=== PATIENT | female | born 1950 | race Caucasian/White ===

== ENCOUNTER 2017-09-23 14:00 | Observation (INO) ==
[2017-09-23] MEDS ORDERED: IOPAMIDOL 100 ML BOTTLE IV ONE (14:01)
--- NOTE | 2017-09-23 14:40 | Cat Scan Report ---
CLINICAL INFORMATION: Code stroke. History of NPH with shunt COMPARISON: 07/19/[address] TECHNIQUE: 2.5 mm helical slices were obtained in the skull base to vertex. Following reconstruction, axial reformatted images were reviewed at bone and parenchymal windows. The exam was performed using radiation dose optimization techniques including, but not limited to, automated exposure control, adjustment of the mA and/or kV according to patient size and use of iterative reconstruction technique. FINDINGS: INVENTORY PLANNER shunt catheter enters through a right frontal craniotomy and extends through the right frontal lobe into the frontal horn of the right lateral ventricle, foramen of Bender with the shunt tip in the anterior third ventricle. The shunt remains in stable satisfactory position. Ventricles remain small, slitlike suggesting overshunting. This is unchanged. Moderate-sized chronic infarct in the in the deep right frontal white matter along the shunt tract and a second moderate infarct in the deep white matter infarct in the right frontal parietal junction is again noted. Patchy chronic ischemic changes throughout the deep cerebral white matter also stable. There is no intracerebral hemorrhage, mass effect or edema. Bone windows show no osseous abnormality. IMPRESSION: 1. No evidence of hemorrhage, edema or other acute finding 2. INVENTORY PLANNER shunt catheter is in stable satisfactory position. The ventricles remain quite small suggesting overshunting. 3. Moderate size remote remote infarcts in the deep white matter of the right frontal lobe and the right frontal/parietal junction again noted. Mild chronic ischemic changes in the knee cerebral white matter were also seen on the comparison study. Interpreted and Authenticated by: Naeem Terrazas 09/23/17
--- NOTE | 2017-09-23 14:57 | Emergency Department Note ---
Neuro HPI - General Chief Complaint: Stroke Symptoms Stated Complaint: Speech slurring starting last night. Time Seen by Provider: 09/23/17 14:09 Source: patient Mode of arrival: ambulatory Limitations: no limitations - History of Present Illness HPI Narrative: This pleasant 67-year-old female was brought by her daughter, Sarah, due to suspected drooping of the left side of the face. Patient was seen a few moments ago by Dr. Moya, who felt that there were abnormalities and sent her directly to the emergency room. She arrived around 1:50 PM. This is when daughter first also noticed that it seemed to be some drooping of the left corner of her mouth. Also has had some slurred speech. The drooping of the face may have been present in the evening around 7 PM when the daughter also saw the patient but she did not notice anything else and was questioning this. Patient had no troubles with rest or sleep. She denies numbness or tingling anywhere or weakness or imbalance or pain. REVIEW OF SYSTEMS: Denies fevers chills or sweats. Denies headache or weakness. Denies paresthesias. Has had a problem with memory issues related to damages from the hydrocephalus from the benign tumor causing hydrocephalus which is happened on 2 occasions. Denies shortness of breath or cough. Denies chest pain or palpitations. No history of heart murmur. Denies abdominal pain or nausea or vomiting. No diarrhea but it has some mild constipation. No dysuria or frequency. Some back pain attributed to arthritis. No anxiety. Has some grief/adjustment depression with her passing away 4 years ago and having to sell the place, etc. - Related Data Home Medications: Home Medications Medication Instructions Recorded Confirmed Calcium Carbonate/Vitamin D3 1 each PO DAILY 07/19/16 07/19/16 [Calcium 600-Vit D3 800 Tab] Fenofibrate Nanocrystallized 48 mg PO DAILY 07/19/16 07/19/16 [Fenofibrate] Losartan [Cozaar] 100 mg PO DAILY 07/19/16 07/19/16 Allergies/Adverse Reactions: Allergies Allergy/AdvReac Type Severity Reaction Status Date / Time No Known Drug Allergies Allergy Verified 07/19/16 15:54 Past Medical History - Past Medical History Medical history: Reports: arthritis (Of back.), hypertension, other (Memory difficulties. Benign brain tumor. Hydrocephalus. DENIES: previously known history of heart murmur.). Denies: cancer, CVA, DM (but PREDIABETES.), myocardial infarction Psychiatric history: Reports: depression (Due to adjustment and grief). Denies : anxiety Surgical history ED: Reports: hysterectomy, knee replacement (Bilateral), other (MORTGAGE LOAN ORIGINATOR shunt) - Social History smoking status: Former smoker (Small amounts socially in the past.) Alcohol use: Reports: Rarely (May be a beer a quarter at the most.) Drug use: Reports: none. Denies: marijuana Physical Exam Limitations: no limitations General appearance: alert, in no apparent distress Head: atraumatic, normocephalic Eye: Present: PERRL, EOMI ENT: normal oropharynx, mucous membranes moist, other (Trace downward turn of the left corner of the mouth. Smile seems to be symmetric. Left eye is trace more open than the right eye. Forehead wrinkling is a same on both sides.) Neck: Present: trachea midline. Absent: lymphadenopathy, thyromegaly Respiratory: Present: normal lung sounds bilaterally. Absent: respiratory distress, wheezes, stridor, accessory muscle use, prolonged expiratory phase Cardiovascular: Present: regular rate, normal rhythm. Absent: systolic murmur, diastolic murmur Abdominal: Present: soft. Absent: distention, tenderness, guarding, rebound, rigidity, organomegaly, mass Extremities: Absent: pedal edema, pretibial edema, calf tenderness Back: Absent: CVA tenderness (R), CVA tenderness (L) Neurological: Present: alert, oriented X3, other (left forehead flatter than right but family is certain this is normal chronic.) Patient oriented to: Present: person, place, time Speech: Present: fluid speech (Trace slurring noticeable to myself and to daughter.). Absent: receptive aphasia, expressive aphasia Cranial nerves: EOM function (II, III, IV, ): Normal, facial sensation (V): Normal, facial palsy (VII): Abnormal Left (Trace left corner of the mouth down.) , tongue deviation (XII): Normal Cerebellar function: finger to nose: Normal, heel to hudson: Normal Cerebellar function: normal gait Motor strength - LUE: 4/5 Motor strength - RUE: 4/5 Motor strength - LLE: 4/5 Motor strength - RLE: 4/5 Upper motor neuron exam: pronator drift: Absent bilaterally Sensory exam upper extremity: Normal: light touch, pin prick Sensory exam lower extremity: Normal: light touch, pin prick Psychiatric: Present: normal affect, normal mood Skin: Present: warm, dry Course Course Narrative: 2:02 PM With patient's symptoms and possibilities and concerns, code stroke was initiated with CT scan of the head followed by CTA of the head neck. [address] of the head was negative. CTA head and neck Vital Signs Temperature 98.1 F 09/23/17 14:00 Pulse Rate 74 09/23/17 14:00 Respiratory Rate 18 09/23/17 14:00 Blood Pressure 150/77 09/23/17 14:00 Pulse Oximetry (%) 95 09/23/17 14:00 Temperature 98.1 F 09/23/17 14:00 Pulse Rate 73 09/23/17 15:02 Respiratory Rate 20 09/23/17 15:02 Blood Pressure 122/63 09/23/17 15:02 Pulse Oximetry (%) 93 09/23/17 15:02 Neuro Symptoms/Deficit - MDM Narrative Medical decision making narrative: 2:45 PM NIH score 2, ABCD2 score of 4. Heart murmur is a new finding. Await CTA of head neck. 3:30 PM CTA of the head and neck was negative. I spoke with neuroradiologist Dr. Ace Holder, who agrees it to conservative management is recommended that we are outside the window of intervention that would be of usefulness. He recommended dual antiplatelet therapy with aspirin and Plavix with a loading dose, plus a statin. Telemetry monitoring to rule out paroxysmal A. fib and monitor blood pressure could be considered. With her ABCD 2 score of 4, this seems to be velasquez. Plus to get an echocardiogram with her newly diagnosed systolic heart murmur. 4:00 PM I spoke with hospitalist, Dr. Ben Plaza, who kindly agreed to accept this patient for inpatient additional monitoring and/or treatment. Possibility that this could be simply a Cobb's palsy with a more pronounced dysarthria due to muscular involvement of the oropharynx seems less likely. More likely seems that this is a small CVA. Additional neuroimaging may be considered. - Lab Data Lab results reviewed: Yes I reviewed the patient's lab results. Result diagrams: 09/23/17 14:23 09/23/17 14:23 Lab Results 09/23/17 09/23/17 09/23/17 Range/Units 14:23 14:23 14:23 WBC 7.6 (4.5-11.0) K/mcL RBC 4.71 (4.00-5.20) M/mcL Hgb 14.8 (12.0-15.0) g/dL Hct 43.1 (36.0-48.0) % POC Hct 43.0 (36.0-48.0) % MCV 91.4 (80.0-100.0) fL MCH 31.5 (26.0-34.0) pg MCHC 34.4 (31.0-36.0) g/dL RDW 13.0 (11.5-14.5) % Plt Count 277 (140-440) K/mcL MPV 8.7 (7.4-10.4) fL Gran % 70.7 (38.0-78.0) % Lymph % (Auto) 18.8 (15.5-49.0) % [place] % (Auto) 8.2 (1.0-12.0) % Eos % (Auto) 2.0 (0.0-7.0) % Baso % (Auto) 0.3 (0.0-2.0) % Gran # 5.3 (1.8-8.0) K/mcL Lymph # (Auto) 1.4 L (1.5-4.8) K/mcL [place] # (Auto) 0.6 (0.1-0.9) K/mcL Eos # (Auto) 0.1 (0.0-0.7) K/mcL Baso # (Auto) 0 (0.0-0.3) K/mcL POC PT 11.1 L (11.9-14.5) sec POC INR 0.9 (0.9-1.2) APTT 34 (20-37) sec POC Sodium 140 (133-145) mmol/L Sodium 142 (133-145) mmol/L POC Potassium 3.8 (3.3-5.1) mmol/L Potassium 3.9 (3.3-5.1) mmol/L POC Chloride 101 (96-108) mmol/L Chloride 102 (96-108) mmol/L Carbon Dioxide 27 (22-30) mmol/L POC Total CO2 29 (22-30) mmol/L Anion Gap 13.0 (8-16) POC BUN 20 (8-23) mg/dl BUN 18 (8-23) mg/dl Creatinine 1.0 (0.6-1.1) mg/dl POC Creatinine 1.0 (0.6-1.1) mg/dl GFR Calculation 59 Glucose 125 H (70-105) mg/dL POC Glucose 126 H (70-105) mg/dL Calcium 10.3 (8.6-10.4) mg/dl POC WB Ioniz Calcium 1.27 (1.16-1.32) mmol/L Total Bilirubin 0.2 (0.0-1.0) mg/dL AST 12 (0-37) U/l ALT 14 (0-40) U/l Alkaline Phosphatase 90 (39-117) U/L Troponin T (0-0.03) ng/ml Total Protein 7.1 (5.9-8.4) gm/dL Albumin 4.5 (3.2-5.2) gm/dL Globulin 2.6 (2.2-3.7) gm/dL Albumin/Globulin Ratio 1.7 (1.0-2.3) 09/23/17 Range/Units 14:23 WBC (4.5-11.0) K/mcL RBC (4.00-5.20) M/mcL Hgb (12.0-15.0) g/dL Hct (36.0-48.0) % POC Hct (36.0-48.0) % MCV (80.0-100.0) fL MCH (26.0-34.0) pg MCHC (31.0-36.0) g/dL RDW (11.5-14.5) % Plt Count (140-440) K/mcL MPV (7.4-10.4) fL Gran % (38.0-78.0) % Lymph % (Auto) (15.5-49.0) % [place] % (Auto) (1.0-12.0) % Eos % (Auto) (0.0-7.0) % Baso % (Auto) (0.0-2.0) % Gran # (1.8-8.0) K/mcL Lymph # (Auto) (1.5-4.8) K/mcL [place] # (Auto) (0.1-0.9) K/mcL Eos # (Auto) (0.0-0.7) K/mcL Baso # (Auto) (0.0-0.3) K/mcL POC PT (11.9-14.5) sec POC INR (0.9-1.2) APTT (20-37) sec POC Sodium (133-145) mmol/L Sodium (133-145) mmol/L POC Potassium (3.3-5.1) mmol/L Potassium (3.3-5.1) mmol/L POC Chloride (96-108) mmol/L Chloride (96-108) mmol/L Carbon Dioxide (22-30) mmol/L POC Total CO2 (22-30) mmol/L Anion Gap (8-16) POC BUN (8-23) mg/dl BUN (8-23) mg/dl Creatinine (0.6-1.1) mg/dl POC Creatinine (0.6-1.1) mg/dl GFR Calculation Glucose (70-105) mg/dL POC Glucose (70-105) mg/dL Calcium (8.6-10.4) mg/dl POC WB Ioniz Calcium (1.16-1.32) mmol/L Total Bilirubin (0.0-1.0) mg/dL AST (0-37) U/l ALT (0-40) U/l Alkaline Phosphatase (39-117) U/L Troponin T < 0.01 (0-0.03) ng/ml Total Protein (5.9-8.4) gm/dL Albumin (3.2-5.2) gm/dL Globulin (2.2-3.7) gm/dL Albumin/Globulin Ratio (1.0-2.3) - Radiology Data Radiology results reviewed: Yes I reviewed the patient's radiology results. - EKG Data EKG results narrative: No acute coronary syndrome findings. This ECG will be read by a bee breeder. Disposition Pt seen by INTERNATIONAL SALES REPRESENTATIVE/PA only: No Clinical Impression: Slurred speech, Facial asymmetry, Hypertension, essential, benign, Heart murmur previously undiagnosed CVA (cerebrovascular accident) Qualifiers: CVA mechanism: unspecified Qualified Code(s): I63.9 - Cerebral infarction, unspecified Disposition: Xfer As Inpt ([facility]) Condition: Fair Referrals: Areli Manuel MD [Primary Care Provider] -
[2017-09-23 15:01] LABS: Basophils # (Auto) 0 K/mcL (0.0-0.3); Basophils % (Auto) 0.3 % (0.0-2.0); Eosinophils # (Auto) 0.1 K/mcL (0.0-0.7); Granulocytes % (Auto) 70.7 % (38.0-78.0); Lymphocytes # (Auto) 1.4 K/mcL (1.5-4.8); Lymphocytes % (Auto) 18.8 % (15.5-49.0); Mean Cell Volume 91.4 fL (80.0-100.0); Mean Corpuscular HGB Conc 34.4 g/dL (31.0-36.0); Mean Corpuscular Hemoglobin 31.5 pg (26.0-34.0); Monocytes # (Auto) 0.6 K/mcL (0.1-0.9); Monocytes % (Auto) 8.2 % (1.0-12.0); Platelet Count 277 K/mcL (140-440); RBC 4.71 M/mcL (4.00-5.20)
[2017-09-23 15:14] LABS: ALT/SGPT 14 U/l (0-40); Albumin 4.5 gm/dL (3.2-5.2); Albumin/Globulin Ratio 1.7 (1.0-2.3); Alkaline Phosphatase 90 U/L (39-117); Blood Urea Nitrogen 18 mg/dl (8-23)
--- NOTE | 2017-09-23 15:25 | Cat Scan Report ---
CLINICAL INFORMATION: Code stroke COMPARISON: None. TECHNIQUE: 80 cc of Isovue-300 were injected intravenously , and using SmartPrep to maximize cerebral arterial opacification, 0.625 mm helical slices were obtained from the skull base through the cerebral vertex. Following reconstruction , sagittal, coronal and axial reformatted images were processed and reviewed at multiple windows and levels. 3D volume rendered and MIP images were acquired at a independent workstation. The exam was performed using radiation dose optimization techniques including, but not limited to, automated exposure control, adjustment of the mA and/or kV according to patient size and use of iterative reconstruction technique. FINDINGS: The intracranial internal carotid, anterior and middle cerebral, intracranial vertebral, basilar and posterior cerebral arteries shows minimal scattered atherosclerotic plaque but no evidence of occlusion, significant stenosis or other abnormality. Superficial and deep cerebral veins are widely patent IMPRESSION: Negative Interpreted and Authenticated by: Naeem Terrazas 09/23/17
--- NOTE | 2017-09-23 15:33 | Cat Scan Report ---
CLINICAL INFORMATION: Code stroke COMPARISON: None. TECHNIQUE: 80 cc of Isovue-300 were injected intravenously, and using SmartPrep to maximize arterial opacification, 0.625 mm helical slices were obtained from the thoracic aortic arch through the mohegan of [place]. Following reconstruction, 1.25 mm sagittal, coronal and axial reformatted images were processed and reviewed at standard and bone algorithm/window. 3-D volume rendered, CPR and MIP images were processed using a NumberPicture work station.The exam was performed using radiation dose optimization techniques including, but not limited to, automated exposure control, adjustment of the mA and/or kV according to patient size and use of iterative reconstruction technique. FINDINGS: The thoracic aortic arch is normal in contour and caliber with diffuse intimal thickening. Aortic arch branching is conventional. There is moderate fibrofatty plaque in the posterior wall of the left ICA origin which does not result in significant stenosis - less than 30 %. The remainder of the internal, common, external carotid, brachycephalic, subclavian and vertebral arteries are widely patent. Soft tissues are significant for a 20 x 11 mm lobulated septated low-attenuation nodule with central calcification dominating the inferior right thyroid lobe. No other soft tissue abnormalities. Cervical spine is anatomically aligned without osseous abnormality. At C4-5, moderate broad disc spur complex left-sided asymmetry results in severe left lateral recess/IV foraminal narrowing impinging the exiting left C5 nerve root. At C5-6, broad right-sided disc spur complex results in severe right lateral recess last IV foraminal narrowing impinging the exiting right C6 nerve root IMPRESSION: 1. Moderate fibrofatty plaque in the left ICA origin which does not result in significant stenosis - less than 30%. The remainder of the carotid, vertebral, brachiocephalic and subclavian arteries are all normal 2. 20 x 11 mm low-attenuation nodule inferior right thyroid lobe with central calcification. Suggest: Thyroid ultrasound 3. Left-sided C4-5 disc spur complex resulting in severe left lateral recess last IV foraminal narrowing impinging the exiting left C5 nerve root and C5-6 broad disc spur complex resulting in severe right lateral recess IV foraminal narrowing impinging the exiting right C6 nerve root. Please correlate with radiculopathy Interpreted and Authenticated by: Naeem Terrazas 09/23/17
[2017-09-23] MEDS ORDERED: CLOPIDOGREL 300 MG TABLET PO ONE (16:02)
[2017-09-23] MEDS ORDERED: ATORVASTATIN 40 MG TABLET PO ONE (16:03)
[2017-09-23] MEDS ORDERED: ASPIRIN 81 MG TAB.CHEW CHEWED ONE (16:03)
[2017-09-23 16:19] LABS: Appearance,Urine CLEAR; Bilirubin,Urine NEG (NEG); Color,Urine STRAW; Glucose,Urine (UA) NEGATIVE (NEG); Leukocyte Esterase,Urine NEG /uL (NEG); Protein,Urine NEG (NEG); Specific Gravity,Urine 1.016 (1.000-1.035); Urine Blood NEG mg/dL (<0.03); Urobilinogen,Urine NEG (NEG)
[2017-09-23] MEDS ORDERED: 0.9 % SODIUM CHLORIDE 1,000 ML IV ONE (16:56)
[2017-09-23] MEDS ORDERED: LABETALOL 5 MG/ML ML IV PRN ×2 (18:05→21:15)
[2017-09-23] MEDS ORDERED: ACETAMINOPHEN 325 MG TABLET PO PRN (18:05)
[2017-09-23] MEDS ORDERED: ONDANSETRON 4 MG/2 ML VIAL IV PRN (18:05)
[2017-09-23 20:06] LABS: HDL Cholesterol 31 mg/dl (>40)
[2017-09-23] MEDS: ENOXAPARIN 40 MG/0.4 ML SYRINGE SQ SCH (21:38)
[2017-09-23] MEDS: 0.9 % SODIUM CHLORIDE 10 ML SYRINGE IV SCH (21:38)
[2017-09-24] MEDS: 0.9 % SODIUM CHLORIDE 10 ML SYRINGE IV SCH ×4 (05:52→20:35)
--- NOTE | 2017-09-24 07:27 | History and Physical Report ---
DATE OF ADMISSION: 09/23/2017 PRIMARY CARE PHYSICIAN: Areli Manuel MD; Dr. Moreno, Neurosurgeon. CHIEF COMPLAINT: Left facial droop and some slurring. HISTORY OF PRESENT ILLNESS: This is a 67-year-old female with a history of hypertension, hyperlipidemia who went to chiropractor this morning and he noticed some facial droop and concerned for stroke sent her in to the ER. In speaking with the family the patient's family member, who I believe is her daughter, noticed that possibly she had some drooping last night but she has lost a lot of weight, which has changed her facial features, so she did not think too much about it. Apparently today at the chiropractor's it was quite noticeable. Per the family when they saw her, they did notice some left facial droop and she did have apparently some slurring in the ER. She was seen and stroke protocol was initiated. She had initial head CT and a CTA head and neck. There were no acute findings, some old remote infarction noted. Case was discussed with stroke neurologist who recommended conservative management, Plavix and aspirin with loading dose of Plavix, monitoring in the hospital for any arrhythmias and blood pressure monitoring. She was noted to have an ABCD score of 4 to 5 so echocardiogram was recommended. In speaking with the patient she has never had any similar instances like this before and never had any heart issues. She did not really notice any facial drooping or speech impairments-it was noted by the family members. She did seem to be clearing up when I saw her. No numbness, tingling, or focal weakness in the extremities. No vision changes. The only recent medication change was her fenofibrate was changed to simvastatin. She feels she has been adequately hydrating herself. Vital signs were stable in the ER. REVIEW OF SYSTEMS: Positive for left facial droop and slurring, which seem to have resolved. Negative for headache, fever, chills, nausea, vomiting, chest pain, shortness of breath, coughing, stomach pain, diarrhea, constipation. Remaining 10-point review of systems is negative. PAST MEDICAL HISTORY: Normal pressure hydrocephalus status post PUMPER HELPER shunt with Dr. Moreno in the past, history of hypertension, hyperlipidemia. PAST SURGICAL HISTORY: Hysterectomy, bilateral total knee arthroplasty, PUMPER HELPER shunt, hernia repair, eye surgery. FAMILY HISTORY: Mother had hypertension, father had diabetes. SOCIAL HISTORY: The patient denies tobacco, drinks alcohol rarely. She does not use a cane or walker to ambulate, lives with daughter. ALLERGIES: No known drug allergies. HOME MEDICATIONS: 1. Losartan. 2. Amlodipine. 3. Simvastatin. 4. Aspirin. PHYSICAL EXAMINATION: VITAL SIGNS: Temperature 98, pulse 74, respirations 18, blood pressure 122/60, was 150/77 when she came in, oxygen 95% on room air. GENERAL: The patient is alert, awake, in no acute distress. HEENT: Extraocular muscles are intact. Pupils equal, reactive to light. Facial expression appears symmetrical at this time. CARDIOVASCULAR: Regular rhythm, II/ systolic murmur noted. PULMONARY: Clear to auscultation bilaterally. No wheeze, rhonchi or rales. ABDOMEN: Soft, nontender, distended, positive bowel sounds in all four quadrants. EXTREMITIES: No clubbing, cyanosis or edema. SKIN: Warm and dry. NEUROLOGIC: Cranial nerves II-XII appear to be grossly intact at this time. Her face appears to be symmetrical at this time and speech when I initially talked with her, there was a possible subtle slurring but by the end of my conversation essentially resolved. She seemed to be speaking clearly, denied any problems with swallowing. LABORATORY DATA: Essentially unremarkable. Imaging reports read as CT of the brain without contrast showed a stable PUMPER HELPER shunt. There was moderate sized remote infarct in the deep white matter of the right frontal lobe and the right frontoparietal junction, some chronic ischemic changes also seen and present on previous imaging. No significant carotid artery stenosis on a CTA of the neck. Urinalysis unremarkable. EKG normal sinus rhythm. ASSESSMENT: 1. Transient ischemic attack with ABCD stroke score between 4 and 5 with this facial droop on the left with some slurring, essentially resolved when I saw her. It sounds like the symptoms lasted for at least a few hours. 2. Hypertension. 3. Hyperlipidemia. She was recently changed from fenofibrate to simvastatin. 4. Normal pressure hydrocephalus status post PUMPER HELPER shunt, follows Dr. Moreno. PLAN: The patient will be monitored in telemetry. We will obtain echocardiogram and MRI for further evaluation. Stroke neurologist was contacted from the ER who recommended dual antiplatelet with loading dose of Plavix, continue Plavix for 3 weeks. We will continue her statin medication. Check lipid panel. Give IV fluid hydration. Allow permissive elevation blood pressure first 24 hours. DVT prophylaxis with Lovenox. LPK:kh Job ID: [id number] Doc ID: [id number] Ben Plaza DO
[2017-09-24] MEDS ORDERED: ATORVASTATIN 40 MG TABLET PO ONE (07:44)
--- NOTE | 2017-09-24 07:48 | Internal Med Progress Note ---
Medical - PN: Subj Patient information: Note initiated : 09/24/17 at 7:39 am Service Date, if different from initiated Date: [] Patient: Inez Astudillo 67 y/o F admitted on 09/23/17 for Speech Slurring Starting Last Night. Chief Complaint: [] Interval history: slept well, no overnight events. Review of Systems: denies numbness/focal weakness/ headache/fever/chills/nausea/vomiting/chest or abdominal pain/cough/dyspnea/diarrhea. Otherwise see above. - Constitutional Vitals: Vital Signs Temp Pulse Resp BP Pulse Ox 98.0 F 65 15 118/68 92 09/24/17 03:01 09/24/17 05:01 09/24/17 05:01 09/24/17 05:01 09/24/17 05:01 Period Temp Pulse Resp BP Sys/Glover Pulse Ox Last 24 Hr 97.0 F-98.1 F 55-77 12-27 112-160/56-114 92-100 Intake and Output 09/23/17 09/24/17 09/24/17 21:59 05:59 13:59 Intake Total 1000 / 1000 200 / 200 Output Total 825 / 825 750 / 750 Balance 175 / 175 -550 / -550 Weight 176 lb 12.8 oz Intake & Output: Intake & Output 09/23/17 09/24/17 09/24/17 21:59 05:59 13:59 Intake Total 1000 / 1000 200 / 200 Output Total 825 / 825 750 / 750 Balance 175 / 175 -550 / -550 Weight 176 lb 12.8 oz Intake: IV 1000 / 1000 Sodium Chloride 0.9% 1,000 ml @ 1000 / 1000 Wide Open IV BOLUS ONE Rx#: [id number] Oral 200 / 200 Output: Urine Catheter Amount 200 / 200 Void Amount 625 / 625 750 / 750 # of times incontinent of urine 0 / 0 Other: Urine Appearance Clear Clear Urine Color Bright Yellow Bright Yellow Urine Odor Normal Normal # Voids 1 Exam: General: Alert, Awake, No acute Distress HEENT: EOMI CV: RRR, 2/6 SM Pulm: Clear b/l, no wheezing/rhonchi/rales Abd: soft, nontender, +BS x4 Ext: no clubbing/cyanosis/edema Neuro: Alert, face symmetrical, no slurring on exam this morning. moves all extremities Skin: warm/dry Medical - PN: Obj Da - Labs CBC & Chem 7: 09/24/17 07:22 09/24/17 07:22 Labs: Abnormal Lab Results 09/23/17 09/23/17 09/23/17 18:38 14:23 14:23 Lymph # (Auto) POC PT 11.1 L Glucose 125 H POC Glucose 126 H Triglycerides 482 H Cholesterol 246 H Non-HDL Cholesterol 215 H HDL Cholesterol 31 L 09/23/17 14:23 Lymph # (Auto) 1.4 L POC PT Glucose POC Glucose Triglycerides Cholesterol Non-HDL Cholesterol HDL Cholesterol Meds: Medications Acetaminophen (Tylenol) 650 mg PO Q4-6HP PRN PRN Reason: PAIN/FEVER > 101 Aspirin (Aspirin) 81 mg CHEWED DAILY REZA Clopidogrel Bisulfate (Plavix) 75 mg PO DAILY REZA Enoxaparin Sodium (Lovenox) 40 mg SQ DAILY [facility] Last Admin: 09/23/17 21:38 Dose: 40 mg Labetalol HCl (Trandate) 10 mg IV Q2HP PRN PRN Reason: sbp>185 Ondansetron HCl (Zofran) 4 mg IV Q4-6HP PRN PRN Reason: Nausea And Vomiting Sodium Chloride (Saline Flush) 10 ml IV Q8 [facility] Last Admin: 09/24/17 05:52 Dose: 10 ml Medical - PN: A/P - Time Spent With Patient Total time spent is greater than 50% in coordination of care (as documented) at patient's floor/unit and/or counseling patient: - Narrative A/P Narrative: A: *TIA with ABCD= 4-5, with this facial droop on the left with some slurring, essentially resolved when I saw her, symptoms lasted for several hours. -CTA Neck no sig stenosis -ekg NSR * Hypertension. * Hyperlipidemia. She was recently changed from fenofibrate to simvastatin. 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 Moreno. PLAN: - Echocardiogram and MRI brain pending. - Stroke neurologist was contacted from ER recommended dual antiplatelet with loading dose of Plavix, continue Plavix for 3 weeks. - continue Statin -s/p IV fluid hydration -Allow permissive elevation blood pressure first 24 hours if needed -ppx: Lovenox. Medical - PN: Qual - Stroke Onset of Symptoms Date: 09/22/17 Onset of Symptoms Time: 19:00 Symptom Onset Unknown: Yes - VTE Deep Vein Thrombosis/Pulmonary Embolism Present on Admission: No
[2017-09-24] MEDS ORDERED: ATORVASTATIN 20 MG TABLET PO ONE (08:00)
[2017-09-24 08:23] LABS: ALT/SGPT 13 U/l (0-40); Albumin 4.1 gm/dL (3.2-5.2); Albumin/Globulin Ratio 1.8 (1.0-2.3); Alkaline Phosphatase 87 U/L (39-117); Bilirubin,Direct < 0.2 mg/dL (0.0-0.3); Blood Urea Nitrogen 16 mg/dl (8-23); Gamma Glutamyl Transpeptidase 21 U/L (5-36); Uric Acid 3.6 mg/dL (2.5-8.0)
[2017-09-24 08:34] LABS: Basophils # (Auto) 0 K/mcL (0.0-0.3); Basophils % (Auto) 0.2 % (0.0-2.0); Eosinophils # (Auto) 0.2 K/mcL (0.0-0.7); Eosinophils % (Auto) 3.3 % (0.0-7.0); Granulocytes % (Auto) 67.3 % (38.0-78.0); Lymphocytes # (Auto) 1.3 K/mcL (1.5-4.8); Lymphocytes % (Auto) 20.4 % (15.5-49.0); Mean Cell Volume 91.3 fL (80.0-100.0); Mean Corpuscular HGB Conc 34.3 g/dL (31.0-36.0); Mean Corpuscular Hemoglobin 31.3 pg (26.0-34.0); Monocytes # (Auto) 0.6 K/mcL (0.1-0.9); Monocytes % (Auto) 8.8 % (1.0-12.0); Platelet Count 266 K/mcL (140-440); RBC 4.55 M/mcL (4.00-5.20); Red Cell Distribution Width 12.7 % (11.5-14.5)
[2017-09-24] MEDS: ASPIRIN 81 MG TAB.CHEW CHEWED SCH (09:10)
[2017-09-24] MEDS: CLOPIDOGREL 75 MG TABLET PO SCH (09:10)
[2017-09-24] MEDS: ENOXAPARIN 40 MG/0.4 ML SYRINGE SQ SCH (09:10)
--- NOTE | 2017-09-24 18:32 | Magnetic Resonance Report ---
CLINICAL INFORMATION: Slurred speech and left-sided facial droop beginning yesterday. 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 COACH OPERATOR shunt placement. COMPARISON: Postoperative MRI from 08/21/2016. TECHNIQUE:Sagittal T1 FLAIR, axial T1 FLAIR, T2 FLAIR propeller, T2 propeller, gradient, diffusion, ADC and coronal T2 weighted images were acquired. FINDINGS: The COACH OPERATOR shunt catheter enters through a right frontal craniotomy extending through the frontal lobe into the body of the right lateral ventricle and foramen of Bender. Tip is in the anterior third ventricle. The ventricles are quite small and slitlike suggesting overshunting. This is unchanged. A 4 x 1 cm wedge-shaped region of encephalomalacia in the right parietal lobe, near vertex, represents the surgical resection site of low-grade glioma. It is identical to the previous postoperative MRI - no evidence of residual or recurrent tumor. Overlying craniotomy defect noted. A 2.7 cm focus of restricted effusion is present in the right lentiform nucleus /posterior limb of the right internal capsule compatible with acute nonhemorrhagic infarct. This would account for the patient's symptoms. A small deep white matter infarct in the right frontal lobe is again noted. Signal void in intracerebral arteries, extra-axial cranial nerves, pituitary and orbits are normal. IMPRESSION: 1. 2.7 cm acute nonhemorrhagic lacunar infarct in the right lentiform nucleus - posterior limb of the right internal capsule. This likely accounts for patient's symptoms 2. 4 x 1 cm thin wedge-shaped region of encephalomalacia in the right parietal lobe, near vertex, representing resection site for a low-grade glioma. No evidence of recurrent/residual tumor. This is unchanged. 3. COACH OPERATOR shunt catheter extending through the right frontal lobe into the right lateral ventricle stable position. The ventricles are small slitlike suggesting overshunting. This is, however, unchanged 4. Moderate remote deep white matter infarct right frontal lobe again noted Interpreted and Authenticated by: Naeem Terrazas 09/24/17
[2017-09-24] MEDS ORDERED: ATORVASTATIN 20 MG TABLET PO SCH (21:00)
[2017-09-25] MEDS: 0.9 % SODIUM CHLORIDE 10 ML SYRINGE IV SCH (05:45)
[2017-09-25] MEDS: ASPIRIN 81 MG TAB.CHEW CHEWED SCH (08:58)
[2017-09-25] MEDS: CLOPIDOGREL 75 MG TABLET PO SCH (08:58)
[2017-09-25] MEDS: ENOXAPARIN 40 MG/0.4 ML SYRINGE SQ SCH (08:58)
--- NOTE | 2017-09-25 09:49 | Discharge Summary ---
Medical - DS: Prov Patient information: Note initiated : 09/25/17 at 9:43 am Service Date, if different from initiated Date: [] Patient: Inez Astudillo 67 y/o F admitted on 09/23/17 for Speech Slurring Starting Last Night/TIA. Chief Complaint: [] Date of admission: 09/23/17 18:01 Discharge date: 09/25/17 Primary care physician: Areli Manuel Consults: 09/23/17 Consult to Physician [CONS] Stat Comment: Consulting Provider: Ben Plaza Reason For Exam: Physician to Consult Medical - DS: Meds - Discharge Medications Prescriptions: Atorvastatin [Lipitor] 40 mg PO HS #30 tab Clopidogrel Bisulfate [Plavix] 75 mg PO DAILY #30 tab Active and Home Medications: Home Medications Calcium Carbonate/Vitamin D3 [Calcium 600-Vit D3 800 Tab] 1 each PO DAILY [History Confirmed 09/23/17 Last Taken 09/23/17 08:00] Losartan [Cozaar] 100 mg PO DAILY 07/19/16 [History Confirmed 09/23/17 Last Taken 09/23/17 08:00] Aspirin [Aspirin EC] 81 mg PO DAILY 09/23/17 [History Confirmed 09/23/17 Last Taken 09/23/17 08:00] Simvastatin [Zocor] 10 mg PO DAILY 09/23/17 [History Confirmed 09/23/17 Last Taken 09/23/17 08:00] amLODIPine [Norvasc] 5 mg PO DAILY 09/23/17 [History Confirmed 09/23/17 Last Taken 09/23/17 08:00] Medical - DS: Hosp Hospital course: Mr. Astudillo is a 67 year old F HISTORY OF PRESENT ILLNESS: This is a 67-year-old female with a history of hypertension, hyperlipidemia who went to chiropractor this morning and he noticed some facial droop and concerned for stroke sent her in to the ER. In speaking with the family the patient's family member, who I believe is her daughter, noticed that possibly she had some drooping last night but she has lost a lot of weight, which has changed her facial features, so she did not think too much about it. Apparently today at the chiropractor's it was quite noticeable. Per the family when they saw her, they did notice some left facial droop and she did have apparently some slurring in the ER. She was seen and stroke protocol was initiated. She had initial head CT and a CTA head and neck. There were no acute findings, some old remote infarction noted. Case was discussed with stroke neurologist who recommended conservative management, Plavix and aspirin with loading dose of Plavix, monitoring in the hospital for any arrhythmias and blood pressure monitoring. She was noted to have an ABCD score of 4 to 5 so echocardiogram was recommended. In speaking with the patient she has never had any similar instances like this before and never had any heart issues. She did not really notice any facial drooping or speech impairments-it was noted by the family members. She did seem to be clearing up when I saw her. No numbness, tingling, or focal weakness in the extremities. No vision changes. The only recent medication change was her fenofibrate was changed to simvastatin. She feels she has been adequ COURSE: Patient was started on aspirin and Plavix per stroke neurologist recommendations. IV fluid hydration lipid panel was done which showed elevated Trigs. She was continued on a statin as WELL. The MRI did show a lacunar infarct right lentiform nucleus posterior limb of the right internal Echocardiogram was done which is pending patient's symptoms essentially resolved. Patient is doing well feeling better and stable for discharge Discharge diagnosis: Acute CVA right lacunar infarct - Time Spent with Patient Total time spent providing and/or coordinating discharge services: Greater than 30 minutes Medical - DS: Exam - Constitutional Vitals: Vital Signs Temp Pulse Resp BP BP BP Pulse Ox 09/25/17 08:00 98.4 F 69 14 140/85 97 09/25/17 04:00 98.6 F 61 16 128/69 95 09/24/17 23:00 98.7 F 65 16 139/73 99 09/24/17 19:43 97.6 F 20 164/85 96 09/24/17 16:00 97.7 F 18 133/74 98 09/24/17 12:01 98.2 F 20 167/97 96 Intake and Output 09/24/17 09/25/17 09/25/17 21:59 05:59 13:59 Intake Total 510 / 510 150 / 150 450 / 450 Output Total 600 / 600 700 / 700 Balance -90 / -90 -550 / -550 450 / 450 Intake: Oral 510 / 510 150 / 150 450 / 450 Output: Void Amount 600 / 600 700 / 700 Other: Meal Breakfast Percent of Meal Consumed 100% Urine Appearance Clear Urine Color Bright Yellow Stool Size Large Stool Color Brown Stool Consistency Dry and Hard Formed # Voids 1 1 # Bowel Movements 1 0 Weight 173 lb 8 oz Medical - DS: A/P - Patient/Caregiver Discharge Instructions Activity: increase activity as tolerated Diet: Cardiac - Follow up Plan Follow up with: Areli Manuel MD [Primary Care Provider] - Disposition: Home, Self-Care Prognosis: Fair Rehab Potential: Good Medical - DS: Qual - VTE Deep Vein Thrombosis/Pulmonary Embolism Present on Admission: No
== END 2017-09-25 11:05 | disposition home or self-care (01) ==
LOC: ED 14:00 → ICU 18:01 → INTOOBSV 18:01 → ICU 09-24 17:42
PROVIDERS: ADMIT Internal Medicine; ATTEND Internal Medicine